=== PATIENT | female | born 1980 | race African-American/Black ===

== ENCOUNTER 2017-11-02 21:45 | Inpatient (IN) | payer OTHER ==
--- NOTE | 2017-11-02 22:39 | HP ---
Past Medical History - Admission History of Present Illness: 36 y/o with SIUP at 40.4 week for scheduled IOL 2/2 GDMA1. complicated by GDMA1 and maternal obesity, followed by MFM, otherwise no complaints. +FM no VB/LOF, occ ctx. History Source: Patient, Medical Record - Past Medical History Cardiovascular: No: HTN Pulmonary: No: Asthma Reproductive: No: Ectopic ...: 2 ...Para: 0 ...Term: 0 ...: 0 ...Spon : 1 ...Induced : 0 ...Multiple Gestation: 0 ... Weeks Gestation by Dates: 40.4 ...EDC by Sono: 10/29/17 Psych: No: Anxiety, Bipolar, Depression Endocrine: Yes: Diabetes Mellitus (gestational) - Past Surgical History Past Surgical History: Yes: None Hx Myomectomy: No Hx Transabdominal Cerclage: No - Alcohol/Substance Use History of Substance Use: reports: None - Social History Usual Living Arrangement: Yes: With Spouse History of Recent Travel: Yes Home Medications - Allergies Allergies/Adverse Reactions: Allergies Allergy/AdvReac Type Severity Reaction Status Date / Time aspirin AdvReac Severe Difficulty Verified 11/02/17 22:19 Breathing apple AdvReac Mild Hives Verified 11/02/17 22:19 latex AdvReac Mild Itching Verified 11/02/17 22:19 - Home Medications Home Medications: Ambulatory Orders Vitamins (Sjr) - 1 tab PO DAILY 11/02/17 Review of Systems - Review of Systems Constitutional: reports: No Symptoms Eyes: reports: No Symptoms HENT: reports: No Symptoms Neck: reports: No Symptoms Cardiovascular: reports: No Symptoms Respiratory: reports: No Symptoms Gastrointestinal: reports: No Symptoms Genitourinary: reports: No Symptoms Breasts: reports: No Symptoms Reported Musculoskeletal: reports: No Symptoms Integumentary: reports: No Symptoms Neurological: reports: No Symptoms Endocrine: reports: No Symptoms Hematology/Lymphatic: reports: No Symptoms Psychiatric: reports: No Symptoms Physical Exam - Maternity Constitutional: Yes: Well Nourished, No Distress, Calm HENT: Yes: WNL, Atraumatic Neck: Yes: WNL Cardiovascular: Yes: WNL Lungs: Clear to auscultation - Abdominal Exam/OB Fundal Height: 41 Number of Fetuses: Single Presentation: Vertex (bedside ultrasound confirming vtx presentation) Contractions: Yes Regularity: Irregular Intensity: Unaware Heart Rate (range): 145 Category: I - Vaginal Exam/OB Vaginal Bleediing: No Speculum Exam: No Dilatation (cm): 0 Effacement (%): 0 Presentation: Vertex/Position Station: -3 - Physical Exam Psychiatric: Yes: Alert, Oriented Hemorrhage Risk Assessment - Risk Factors Medium Risk Factors: Yes: Obesity (BMI >40) High Risk Factors: Yes: None Risk Score: 1 Risk Level: Medium Risk Problem List - Problems (1) Term Code(s): Z34.80 - ENCOUNTER FOR SUPRVSN OF NORMAL , UNSP TRIMESTER (2) Gestational diabetes mellitus (GDM) affecting first Code(s): O24.419 - GESTATIONAL DIABETES MELLITUS IN , UNSP CONTROL (3) Obesity affecting Code(s): O99.210 - OBESITY COMPLICATING , UNSPECIFIED TRIMESTER (4) GBS (group B Streptococcus carrier), +RV culture, currently Code(s): O99.820 - STREPTOCOCCUS B CARRIER STATE COMPLICATING Assessment/Plan SIUP at 40.4 , GDMA1 cervidil induction cervidil placed FHTS cat 1 GBS positive for ampicillin when active labor/ROM
[2017-11-02] MEDS ORDERED: DINOPROSTONE 10 MG VAGINAL SUPPOSITORY VG ONE (23:15)
[2017-11-02] MEDS ORDERED: PROMETHAZINE HCL 25 MG/1 ML VIAL IVPUSH ONE (23:15)
[2017-11-02] MEDS ORDERED: BUTORPHANOL TARTRATE 1 MG/ML VIAL IVPB ONE (23:15)
[2017-11-02 23:57] LABS: BASO % 0.4 % (0-2.0); EOS % 1.4 % (0-4.5); HEMATOCRIT 36.5 % (32.4-45.2); LYMPH % 18.6 % (8-40); MCH 30.4 pg (25.7-33.7); MCHC 32.8 g/dl (32.0-36.0); MEAN CELL VOLUME 92.5 fl (80-96); MEAN PLT VOLUME 8.6 fl (7.5-11.1); MONO % 8.8 % (3.8-10.2); NEUT % 70.8 % (42.8-82.8); PLATELET COUNT 290 K/MM3 (134-434); RBC 3.94 M/mm3 (3.60-5.2); RDW 15.3 % (11.6-15.6); WHITE BLOOD COUNT 7.9 K/mm3 (4.0-10.0)
[2017-11-03 00:06] VITALS: BMI 43.5
[2017-11-03 00:15] LABS: INR 0.96 (0.82-1.09); PROTHROMBIN TIME (PATIENT) 10.8 SEC (9.7-13.0)
[2017-11-03 00:22] LABS: ANION GAP 10 (8-16); BLOOD UREA NITROGEN 6 mg/dL (7-18); CALCIUM 9.4 mg/dL (8.5-10.1); CHLORIDE 107 mmol/L (98-107); CO2 25 mmol/L (21-32); CREATININE 0.9 mg/dL (0.55-1.02); GLUCOSE,RANDOM 114 mg/dL (74-106); POTASSIUM 4.4 mmol/L (3.5-5.1); SODIUM 142 mmol/L (136-145)
[2017-11-03] MEDS ORDERED: LACTATED RINGERS SOLUTION 1,000 ML IV SCH (00:30)
[2017-11-03] MEDS ORDERED: TUBERCULIN PPD 5 TU/0.1ML SYRINGE (IN PATIENT USE ONLY) ID ONE (00:45)
[2017-11-03] MEDS: FAMOTIDINE 20 MG/50 ML IVPB 20 MG/50 ML MG IVPB SCH ×3 (01:20→21:45)
[2017-11-03] MEDS ORDERED: ELECTROLYTE-148 SOLN 500 ML IV ONE (05:00)
[2017-11-03] MEDS ORDERED: CITRIC ACID/SODIUM CITRATE 30 ML UNIT-DOSE CUP PO ONE (05:45)
[2017-11-03] MEDS ORDERED: ELECTROLYTE-148 SOLN 1,000 ML IV SCH (05:45)
--- NOTE | 2017-11-03 05:50 | PN ---
Progress Note (short form) - Note Progress Note: Repeat ultrasound today showing baby still in oblique presentation, head to maternal right. Keep NPO. C section consent signed. Problem List - Problems (1) Term Code(s): Z34.80 - ENCOUNTER FOR SUPRVSN OF NORMAL , UNSP TRIMESTER (2) Gestational diabetes mellitus (GDM) affecting first Code(s): O24.419 - GESTATIONAL DIABETES MELLITUS IN , UNSP CONTROL (3) Obesity affecting Code(s): O99.210 - OBESITY COMPLICATING , UNSPECIFIED TRIMESTER (4) GBS (group B Streptococcus carrier), +RV culture, currently Code(s): O99.820 - STREPTOCOCCUS B CARRIER STATE COMPLICATING
[2017-11-03] MEDS ORDERED: OXYTOCIN 20 UNITS in 0.9% NS 20 UNIT/1,000 ML INFUS.BAG IV ONE ×2 (07:36→10:27)
[2017-11-03] MEDS ORDERED: ceFAZolin SODIUM 1 GM VIAL ONE (07:49)
[2017-11-03] MEDS ORDERED: morphine SULFATE/Preservative Free 0.5 MG/ML (1cc Syringe) ONE (07:49)
[2017-11-03] MEDS ORDERED: BUPIVACAINE 0.75% IN DEXTROSE/PF 2ML AMPULE NR ONE (07:54)
--- NOTE | 2017-11-03 08:07 | PN ---
Ante-Partal Exam - Subjective Subjective: Pt with transverse lie Vital Signs: Vital Signs Temperature 98.5 F 11/03/17 06:00 Pulse Rate 98 H 11/03/17 06:00 Respiratory Rate 20 11/03/17 06:00 Blood Pressure 124/69 11/03/17 06:00 O2 Sat by Pulse Oximetry (%) - Contractions Contractions: No Regularity: Regular - Exam during Labor Category: I Monitor Accelerations: Present Monitor Decelerations: None Amniotic Membrane Status: Intact Presentation: Transverse/Shoulder - Intrapartum Hemorrhage Risk Risk Score: 1 Risk Level: Medium Risk - Assessment/Plan Assessment/Plan: Transverse lie Primary Section
[2017-11-03 09:04] LABS: ARTERIAL BLD GAS O2 SATURATION 12.5 % (90-98.9); ARTERIAL BLOOD GAS PCO2 71.4 mmHg (35-45); ARTERIAL BLOOD GAS PO2 12.4 mmHg (80-100); ARTERIAL BLOOD GAS pH 7.17 (7.35-7.45)
[2017-11-03] MEDS ORDERED: OXYTOCIN 10 UNITS/ML VIAL ONE (09:09)
[2017-11-03 09:10] LABS: VENOUS PC02 71.5 mmHg (38-52); VENOUS PH 7.17 (7.32-7.42); VENOUS PO2 12.6 mmHg (28-48)
--- NOTE | 2017-11-03 09:16 | SURG ---
Surgery Smoke Jumper Note Smoke Jumper: Kailee Abreu PA-C Date of Service: 11/03/17 Diagnosis: transverse lie Procedure: primary I was present for the entirety of the operative procedure. For further detail, please refer to operative report. Visit type - Case Type Case Type: Scheduled - Emergency Emergency Visit: No - New patient This patient is new to me today: Yes Date on this admission: 11/03/17
[2017-11-03] MEDS ORDERED: ACETAMINOPHEN 1000 MG/100 ML VIAL (NON FORMULARY) IVPB PRN ×2 (09:20→09:30)
[2017-11-03] MEDS ORDERED: METHYLERGONOVINE MALEATE 0.2 MG/1 ML AMP IM PRN (10:05)
--- NOTE | 2017-11-03 10:08 | OP ---
Operative Note - Note: Operative Date: 11/03/17 Pre-Operative Diagnosis: Oblique Lie. iup at 40 week. obesity Operation: Primary low transverse Section Findings: live male Post-Operative Diagnosis: Same as Pre-op Surgeon: Coreen Mccollum Nurse Advocate: Kailee Abreu Anesthesia: General Estimated Blood Loss (mls): 600 Operative Report Dictated: Yes
[2017-11-03] MEDS: OXYTOCIN 20 UNITS in 0.9% NS 20 UNIT/1,000 ML INFUS.BAG IV SCH ×2 (10:30→18:17)
[2017-11-03] MEDS ORDERED: ONDANSETRON 4 MG/2 ML VIAL IVPUSH PRN (11:58)
[2017-11-04] MEDS: IBUPROFEN 600 MG TABLET (FP) PO PRN ×3 (06:08→21:50)
[2017-11-04 07:15] LABS: BASO % 0.6 % (0-2.0); EOS % 0.8 % (0-4.5); HEMOGLOBIN 9.9 GM/dL (10.7-15.3); LYMPH % 12.1 % (8-40); MCH 30.8 pg (25.7-33.7); MCHC 33.2 g/dl (32.0-36.0); MEAN PLT VOLUME 7.6 fl (7.5-11.1); MONO % 8.6 % (3.8-10.2); NEUT % 77.9 % (42.8-82.8); PLATELET COUNT 233 K/MM3 (134-434); RBC 3.22 M/mm3 (3.60-5.2); RDW 15.3 % (11.6-15.6); WHITE BLOOD COUNT 11.3 K/mm3 (4.0-10.0)
[2017-11-04] MEDS: FAMOTIDINE 20 MG/50 ML IVPB 20 MG/50 ML MG IVPB SCH (08:59)
[2017-11-04] MEDS ORDERED: oxyCODONE HCL 5 MG TABLET PO PRN ×2 (10:05)
[2017-11-04] MEDS ORDERED: BISACODYL 10 MG SUPP.RECT RC PRN (10:05)
[2017-11-04] MEDS: SIMETHICONE 80 MG TAB.CHEW (FP) PO PRN (13:44)
--- NOTE | 2017-11-04 16:16 | PN ---
Progress Note (short form) - Note Progress Note: Anesthesia post op Pt seen and examined S:Awake alert and comfortable O: Vital Signs Temperature 98.3 F 11/04/17 08:58 Pulse Rate 87 11/04/17 08:58 Respiratory Rate 20 11/04/17 08:58 Blood Pressure 132/49 11/04/17 08:58 O2 Sat by Pulse Oximetry (%) 100 11/03/17 10:29 CBC, BMP 11/04/17 06:30 11/02/17 23:30 A/P Current Active Problems GBS (group B Streptococcus carrier), +RV culture, currently (Acute) Gestational diabetes mellitus (GDM) affecting first (Acute) Obesity affecting (Acute) Term (Acute) S/p c section Doing well post op Continue current care Alex Guzmán MD
--- NOTE | 2017-11-05 07:33 | PN ---
Post Progress Note - Subjective Subjective: s/p section on 11/03 Post Day: 2 Type of Delivery: Primary C/S Vital Signs: Vital Signs Temperature 98.6 F 11/04/17 22:00 Pulse Rate 103 H 11/04/17 22:00 Respiratory Rate 20 11/04/17 22:00 Blood Pressure 127/82 11/04/17 22:00 O2 Sat by Pulse Oximetry (%) 100 11/03/17 10:29 Breast Exam: Yes: Soft Uterus: Yes: Fundus Firm, Fundus below umbilicus Incision: Yes: Sutures intact Abdomen/GI: Yes: Abdomen soft, Passing flatus Lochia: Yes: Rubra Lochia, amount: Moderate Extremities: Yes: Calves non-tender Perineum: Yes: Intact Activity: Ambulating - Labs Labs: CBC WBC 11.3 K/mm3 (4.0-10.0) H 11/04/17 06:30 RBC 3.22 M/mm3 (3.60-5.2) L 11/04/17 06:30 Hgb 9.9 GM/dL (10.7-15.3) L 11/04/17 06:30 Hct 30.0 % (32.4-45.2) L D 11/04/17 06:30 MCV 93.0 fl (80-96) 11/04/17 06:30 MCH 30.8 pg (25.7-33.7) 11/04/17 06:30 MCHC 33.2 g/dl (32.0-36.0) 11/04/17 06:30 RDW 15.3 % (11.6-15.6) 11/04/17 06:30 Plt Count 233 K/MM3 (134-434) 11/04/17 06:30 MPV 7.6 fl (7.5-11.1) D 11/04/17 06:30 Absolute Neuts (auto) 8.8 # 11/04/17 06:30 Neutrophils % 77.9 % (42.8-82.8) 11/04/17 06:30 Lymphocytes % 12.1 % (8-40) D 11/04/17 06:30 Monocytes % 8.6 % (3.8-10.2) 11/04/17 06:30 Eosinophils % 0.8 % (0-4.5) 11/04/17 06:30 Basophils % 0.6 % (0-2.0) 11/04/17 06:30 Nucleated RBC % 0 % (0-0) 11/04/17 06:30 Assessment/Plan s/p section day #2 condition stable , patient vomitted this morning currently has no complaints vss incision is dry and intact plan to advance activities and diet pepside prn for nausea and vomitting continue post op/ post care,
[2017-11-05] MEDS: PRENATAL VITAMINS W/ FOLIC ACID TABLET (FP) PO SCH (09:34)
[2017-11-05] MEDS: RANITIDINE HCL 150 MG TABLET (FP) PO SCH (09:34)
[2017-11-05] MEDS ORDERED: FAMOTIDINE 20 MG/50 ML IVPB 20 MG/50 ML MG IVPB SCH (10:00)
[2017-11-06 07:24] LABS: BASO % 0.6 % (0-2.0); EOS % 2.3 % (0-4.5); HEMATOCRIT 28.7 % (32.4-45.2); HEMOGLOBIN 9.8 GM/dL (10.7-15.3); LYMPH % 21.5 % (8-40); MCH 31.4 pg (25.7-33.7); MCHC 34.1 g/dl (32.0-36.0); MEAN PLT VOLUME 7.3 fl (7.5-11.1); MONO % 8.6 % (3.8-10.2); PLATELET COUNT 290 K/MM3 (134-434); RBC 3.12 M/mm3 (3.60-5.2); RDW 15.2 % (11.6-15.6); WHITE BLOOD COUNT 10.3 K/mm3 (4.0-10.0)
--- NOTE | 2017-11-06 09:13 | PN ---
Post Note - Post Date of Delivery: 11/03/17 Post Day: 3 Vital Signs: Vital Signs - 24 hr 11/05/17 11/06/17 22:00 08:40 Temperature 98 F 98.4 F Pulse Rate 95 H 91 H Respiratory 18 18 Rate Blood Pressure 134/80 128/77 Labs: Laboratory Results - last 24 hr 11/06/17 06:10 WBC 10.3 H RBC 3.12 L Hgb 9.8 L Hct 28.7 L MCV 92.0 MCH 31.4 MCHC 34.1 RDW 15.2 Plt Count 290 D MPV 7.3 L Absolute Neuts (auto) 6.9 Neutrophils % 67.0 Lymphocytes % 21.5 D Monocytes % 8.6 Eosinophils % 2.3 D Basophils % 0.6 Nucleated RBC % 0 - Subjective Subjective: No Complaints, No Nausea or vomiting - Objective Afebrile: Yes Breast: Not engorged Abdomen: Soft, Non-tender Uterus: Fundus firm Vagina: Scant lochia Extremities: Non-tender - Assessment/Plan (1) Obesity affecting Assessment: Other (POD3 SP Section) Plan: Routine Care
[2017-11-06] MEDS: RANITIDINE HCL 150 MG TABLET (FP) PO SCH (09:35)
[2017-11-06] MEDS: PRENATAL VITAMINS W/ FOLIC ACID TABLET (FP) PO SCH (09:35)
[2017-11-06] MEDS: SIMETHICONE 80 MG TAB.CHEW (FP) PO PRN (21:46)
[2017-11-06] MEDS: IBUPROFEN 600 MG TABLET (FP) PO PRN (21:47)
[2017-11-06 23:15] VITALS: TEMP 98.6
--- NOTE | 2017-11-07 07:46 | DS ---
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 Vital Signs: Vital Signs Temperature 98.6 F 11/06/17 22:00 Pulse Rate 90 11/06/17 22:00 Respiratory Rate 18 11/06/17 22:00 Blood Pressure 129/72 11/06/17 22:00 O2 Sat by Pulse Oximetry (%) 100 11/03/17 10:29 Constitutional: Yes: Well Nourished, No Distress Cardiovascular: Yes: WNL, Regular Rate and Rhythm Respiratory: Yes: WNL Gastrointestinal: Yes: WNL, Normal Bowel Sounds ....Post : Yes: Uterus firm, Uterus non-tender Breast(s): Yes: WNL Musculoskeletal: Yes: WNL Extremities: Yes: WNL Edema: No Neurological: Yes: WNL, Alert, Oriented Labs: CBC, BMP 11/06/17 06:10 11/02/17 23:30 Delivery - Delivery Section: Low Flap Transverse Type of Anesthesia: Spinal Episiotomy/Laceration: None EBL (cc): 700 Delivery, Single - Stages of Labor Date 1st Stage Initiatied: 11/03/17 Date of Delivery: 11/03/17 Time of Delivery: 08:24 Time Placenta Delivered: 08:25 - Condition of Infant 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 Present: Yes Infant Gender: Male Weight: 8 lb 6 oz Position: OT Total Hours ROM (Hrs/Mins): 5 mins - 1 Minute Total Score: 9 5 Minutes Total Score: 9 - Feeding Plan Initial Plan: Exclusive throughout hospitalization Discharge Summary Reason For Visit: LABOR ADMIT Current Active Problems GBS (group B Streptococcus carrier), +RV culture, currently (Acute) Gestational diabetes mellitus (GDM) affecting first (Acute) Obesity affecting (Acute) Term (Acute) - Instructions Referrals: Coreen Mccollum MD [Staff Physician] - - Home Medications Comprehensive Discharge Medication List: Ambulatory Orders Vitamins (Sjr) - 1 tab PO DAILY 11/02/17 Oxycodone HCl/Acetaminophen [Percocet 5-325 mg Tablet] 1 tab PO Q4H #20 tablet MDD 6 11/07/17
[2017-11-07 08:21] VITALS: BP 137/79; PULSE 85
[2017-11-07] MEDS: RANITIDINE HCL 150 MG TABLET (FP) PO SCH (09:52)
[2017-11-07] MEDS: PRENATAL VITAMINS W/ FOLIC ACID TABLET (FP) PO SCH (09:52)
--- NOTE | 2017-11-09 18:23 | PATH ---
Surgical Pathology Report Patient Name: NAKUL POND [facility]. Rec. 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 Specimen(s) Received PLACENTA Clinical History 40.4 weeks gestation, history of gastric virus x3, gestational diabetes Final Diagnosis PLACENTA, SECTION: 530 g THIRD TRIMESTER PLACENTA WITH TRIVASCULAR UMBILICAL CORD AND UNREMARKABLE PLACENTAL MEMBRANES. Electronically Signed Tete Butler M.D. Gross Description The specimen is received fresh labeled placenta and is a 530 gram, 15.5 x 15.5 x 3.5 cm. placenta with attached membranes and umbilical cord. The attached membranes are bertrand, translucent with focal opacities and insert marginally. The umbilical cord measures 17 cm. in length and averages 1.0 cm. in diameter. The cord inserts eccentrically, 5 cm. to the nearest margin. No true knots or strictures are identified. Cut surface of the umbilical cord reveals no vessels. The surface is callejas-blue with minimal fibrin deposition and appropriate caliber vessels. The maternal surface is red-brown with focal defects. Sectioning reveals red-brown, spongy parenchyma. No lesions are identified. Entry Analyst sections are submitted in three cassettes as follows: 1- membrane rolls and umbilical cord; 2-3- full thickness sections of placenta. 11/08/201711/08/2017
== END 2017-11-07 13:25 | disposition home or self-care (01) | DRG 540 ==
LOC: JLDR 21:45 → J3W 11-03 10:57
PROVIDERS: ADMIT Obstetrics & Gynecology; ATTEND Obstetrics & Gynecology
PROC: 10D00Z1 Extraction of Products of Conception, Low, Open Approach (ICD-10-PCS; principal; 2017-11-03)
PROC: 3E0P7VZ Introduction of Hormone into Female Reproductive, Via Natural or Artificial Opening (ICD-10-PCS; 2017-11-03)
DX: O24.429 Gestational diabetes mellitus in childbirth, unspecified control (principal); O32.2XX0 Maternal care for transverse and oblique lie, not applicable or unspecified; O99.214 Obesity complicating childbirth; E66.8 Other obesity; Z68.41 Body mass index [BMI] 40.0-44.9, adult; O99.824 Streptococcus B carrier state complicating childbirth; O48.0 Post-term pregnancy; Z3A.40 40 weeks gestation of pregnancy; Z37.0 Single live birth
CPT/HCPCS: 36415; 36600; 80048; 82803; 85025; 85610; 85730; 86593; 86850; 86900; 86901; 88307-TC